=== PATIENT | female | born 1945 | race Two or more races ===

== ENCOUNTER 2020-01-09 07:00 | Inpatient (IN) | payer OTHER ==
[~2020-01-09] VITALS: Ht 152.4 cm
[~2020-01-09 07:00] MED LIST: EVISTA60 MG
[2020-01-09] MEDS ORDERED: PRILOSEC OTC20 MG PO (08:31)
[2020-01-09] MEDS ORDERED: LACTOSE PO (08:32)
[2020-01-17] MEDS ORDERED: LACTOSE FAS9000 UNI2 (08:08)
[2020-01-18] MEDS ORDERED: DUI500 PO (16:03)
[2020-01-18] MEDS ORDERED: PERCOCET 5-3251 EACH PO (16:03)
[2020-01-18] MEDS ORDERED: ELIQUIS2.5 MG PO (16:03)
== END 2020-01-18 18:43 | disposition home or self-care (01) | DRG 470 ==
LOC: O/R 01-16 05:35 → SURG 01-16 05:35 → SURH 01-16 07:00 → SURG 01-16 10:15
PROVIDERS: ADMIT Orthopaedic Surgery; ATTEND Orthopaedic Surgery
PROC: 0SRD0J9 Replacement of Left Knee Joint with Synthetic Substitute, Cemented, Open Approach (ICD-10-PCS; principal; 2020-01-16 07:00)
DX: M17.12 Unilateral primary osteoarthritis, left knee (principal); M81.8 Other osteoporosis without current pathological fracture

== ENCOUNTER 2020-01-20 07:28 | Emergency (ER) | payer OTHER ==
[~2020-01-20] VITALS: Ht 160 cm; Wt 56.7 kg
[~2020-01-20 07:28] MED LIST changes: +DUI500 PO; +ELIQUIS2.5 MG PO; +LACTOSE FAS9000 UNI2; +LACTOSE PO; +PERCOCET 5-3251 EACH PO; +PRILOSEC OTC20 MG PO
[2020-01-20] MEDS ORDERED: CELEBREX200MG PO (12:33)
[2020-01-20] MEDS ORDERED: ULTRACET PO (12:33)
[2020-01-20] MEDS ORDERED: LACTULOSE20 GM/30 M PO (12:33)
== END 2020-01-20 13:55 | disposition home or self-care (01) ==
LOC: ER 07:28
DX: K59.09 Other constipation (principal); Z03.818 Encounter for observation for suspected exposure to other biological agents ruled out